=== PATIENT | male | born 1950 | race Caucasian/White ===

== ENCOUNTER 2016-11-02 11:19 | Day surgery (SDC) | payer OTHER ==
[2016-11-02] MEDS ORDERED: Sodium Chloride 0.9% 10 ML Syringe FLUSH PRN (11:30)
[2016-11-02] MEDS ORDERED: Lactated Ringers 1,000 ML IV SCH (11:30)
[2016-11-02] MEDS ORDERED: Midazolam 1 MG/ML 2 ML SDV ONE (12:25)
[2016-11-02] MEDS ORDERED: fentaNYL 100 MCG/2 ML SDV ONE (12:25)
[2016-11-02] MEDS ORDERED: Propofol 200 MG/20 ML SDV ONE (12:25)
--- NOTE | 2016-11-02 12:27 | PCM.PN ---
- General Info Date of Service: 11/02/16 - Review of Systems Systems Review Comment:: 66 y/o male with history of Prostate Cancer here for screening colonoscopy. He is medically stable to proceed with no significant changes to his health status since his last exam which I have reviewed. He has had some blood noted when wiping after a BM. I have discussed the proposed colonoscopy with the patient. Risks such as bleeding and GI injury discussed and he agrees to proceed. - Patient Data Vitals - Most Recent: Last Vital Signs Temp 98.0 F 11/02/16 11:37 Pulse 65 11/02/16 11:37 Resp 20 11/02/16 11:37 BP 130/85 11/02/16 11:37 Pulse Ox 98 11/02/16 11:37 Weight - Most Recent: 85.729 kg Med Orders - Current: Current Medications Lactated Ringer's (Ringers, Lactated) 1,000 mls @ 125 mls/hr IV ASDIRECTED LESLIE Last Admin: 11/02/16 12:02 Dose: 125 mls/hr Sodium Chloride (Saline Flush) 10 ml FLUSH ASDIRECTED PRN PRN Reason: Keep Vein Open - Problem List Review Problem List Initiated/Reviewed/Updated: Yes - My Orders Last 24 Hours: My Active Orders 11/02/16 11:30 Patient Status [ADT] Routine Peripheral IV Care [RC] . DIRECTED Verify Patient Consent Obtain [RC] ASDIRECTED Lactated Ringers [Ringers, Lactated] 1,000 ml IV ASDIRECTED Sodium Chloride 0.9% [Saline Flush] 10 ml FLUSH ASDIRECTED PRN Peripheral IV Insertion Adult [OM.PC] Routine - Assessment Assessment:: Colon Cancer Screening Rectal Bleeding - Plan Plan:: Colonoscopy
--- NOTE | 2016-11-02 13:04 | PCM.OPNOTE ---
- General Post-Op/Procedure Note Date of Surgery/Procedure: 11/02/16 Operative Procedure(s): Colonoscopy with Polypectomy Findings: Sigmoid Colon Polyp Moderate Radiation Proctitis Pre Op Diagnosis: Colon Cancer Screening. Rectal bleeding Post-Op Diagnosis: Colon Polyp. Radiation Proctitis Anesthesia Technique: MAC Primary Surgeon: Daniel Sood Pathology: Sigmoid Colon Polyp Output, Urine Amount: 0 Complications: None Condition: Good Free Text/Narrative:: Intake & Output 11/01/16 11/02/16 11/02/16 22:59 06:59 14:59 Intake Total 700 Balance 700
[2016-11-02 13:59] VITALS: BP 119/72
--- NOTE | 2016-11-03 08:31 | OR ---
Date of Procedure: 11/02/2016 PREOPERATIVE DIAGNOSES: Colon cancer screening, rectal bleeding, history of prostate cancer. POSTOPERATIVE DIAGNOSES: Sigmoid colon polyp, radiation proctitis. OPERATION PERFORMED: Colonoscopy with polypectomy. INDICATIONS FOR SURGERY: This 66-year-old male, was referred for colonoscopy. He says his last colon exam was about 10 years ago. He has been noticing some blood on the tissue paper when he wipes after bowel movement. It is significant to note that the patient has had a previous prostatectomy for cancer as well as radiation to the bed of the prostate. FINDINGS: A single polyp was noted in the sigmoid colon. This was a pedunculated 8 mm polyp. The remainder of the colon appears normal. In his rectum, he does have areas of hyperemia, consistent with radiation proctitis, although no active bleeding is seen at this time and no other lesions are noted. His prostate is absent on digital rectal exam. DESCRIPTION OF PROCEDURE: The patient was taken to the operating room. He was given intravenous sedation, and with him in the left lateral decubitus position, digital rectal exam was performed. No rectal masses were noted. The Olympus colonoscope was inserted into the rectum, retroflexed examination of the rectal canal was performed. The scope was then carefully advanced under direct visualization to the sigmoid region, where 25 cm from the anal verge, the above-described polyp was identified. This was removed with a cautery snare and retrieved into a polyp trap. The scope was then further advanced through the entire length of the colon until the cecum was reached. The cecal acquisition was confirmed by noting the normal internal cecal anatomy and identifying the light to transilluminate the abdominal wall in the right lower quadrant. After examining the cecum, the scope was slowly withdrawn, sequentially re-examining the colonic segments until the entire colon and rectum had been fully examined. Once this had been accomplished, the scope was removed and with no sign of any complication. The patient was awakened and taken from the operating room in satisfactory condition. ESTIMATED BLOOD LOSS: Zero. COMPLICATIONS: None. PROGNOSIS: Good. ELIZABETH Sood MD /[id number]
== END 2016-11-02 13:48 | disposition home or self-care (01) ==
LOC: LL.SDS 11:19
PROVIDERS: ATTEND Surgery
DX: Z12.11 Encounter for screening for malignant neoplasm of colon (principal); D12.5 Benign neoplasm of sigmoid colon; E78.2 Mixed hyperlipidemia; Z88.8 Allergy status to other drugs, medicaments and biological substances; Z79.899 Other long term (current) drug therapy; Z98.890 Other specified postprocedural states
CPT/HCPCS: 00810; 45385; J2250; J2704; J3010; J7120

== ENCOUNTER 2022-03-30 11:40 | Day surgery (SDC) | payer MEDICARE, BC ==
[~2022-03-30 11:40] MED LIST: Midazolam 1 MG/ML 2 ML SDV ONE; Propofol 200 MG/20 ML SDV ONE
[2022-03-30] MEDS ORDERED: Sodium Chloride 0.9% 10 ML Syringe FLUSH PRN (12:00)
[2022-03-30] MEDS ORDERED: Lactated Ringers 1,000 ML IV SCH (12:00)
[2022-03-30 15:50] VITALS: BP 140/74; PULSE 57
== END 2022-03-30 14:40 | disposition home or self-care (01) ==
LOC: LL.SDS 11:40
PROVIDERS: ATTEND Surgery
DX: Z12.11 Encounter for screening for malignant neoplasm of colon (principal); D12.2 Benign neoplasm of ascending colon; D12.5 Benign neoplasm of sigmoid colon; D12.3 Benign neoplasm of transverse colon; E78.5 Hyperlipidemia, unspecified; C61 Malignant neoplasm of prostate; R73.01 Impaired fasting glucose; R06.81 Apnea, not elsewhere classified; Z86.010 Personal history of colon polyps; Z79.899 Other long term (current) drug therapy; Z88.6 Allergy status to analgesic agent
CPT/HCPCS: J2250; J2704; J7120